=== PATIENT | female | born 1980 | race Caucasian/White ===

== ENCOUNTER 2016-08-01 20:34 | Emergency (ER) | payer OTHER | END 2016-08-01 21:42 | disposition home or self-care (01) | LOC: CED 20:34 → CFTX 20:34 | DX: L02.01 Cutaneous abscess of face (principal); Z88.0 Allergy status to penicillin; Z88.5 Allergy status to narcotic agent; Z91.040 Latex allergy status | CPT/HCPCS: 99282 ==

== ENCOUNTER 2016-09-11 12:58 | Emergency (ER) | payer OTHER ==
[~2016-09-11] VITALS: Ht 162.6 cm; Wt 56.2 kg
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
[2016-09-11 14:36] LABS: BASOPHIL% 0.9 % (0-2.5); HEMATOCRIT 47.6 % (35.0-45.0); LYMPHOCYTE# 1.7 X10e3 (1.0-3.5); MEAN CELL VOLUME 91.4 FL (83-96); MEAN CORPUSCULAR HEMOGLOBIN 30.8 PG (28-34); MEAN CORPUSCULAR HGB CONC 33.7 g/dL (30-36); MEAN PLATELET VOLUME 7.5 FL (6.5-11.5); MONOCYTE# 0.4 X10e3 (0-1.0); MONOCYTE% 7.5 % (3.0-12.0); NEUTROPHIL# 2.7 X10e3 (1.5-7.1); NEUTROPHIL% 55.6 % (40-75); PLATELET COUNT 338 X10e3 (140-420); RED BLOOD COUNT 5.21 X10e (3.90-5.30); RED CELL DISTRIBUTION WIDTH 13.2 % (11.0-15.5); WHITE BLOOD COUNT 4.8 X10e3 (4.0-10.5)
[2016-09-11 14:49] LABS: DIFF IND NO
[2016-09-11 15:00] LABS: ALBUMIN SERUM 4.7 g/dL (3.5-5.0); BILIRUBIN,TOTAL 0.9 mg/dL (0.2-2.0); BUN/CREATININE RATIO 8.75; CALCIUM SERUM 9.7 mg/dL (8.4-10.2); CREATININE SERUM 0.8 mg/dL (0.6-1.4); GLOM FILT RATE Estimated 94.9 mL/min (>60); POTASSIUM 3.1 mmol/L (3.5-5.1); PROTEIN TOTAL SERUM 8.1 g/dL (6.0-8.3)
[2016-09-11 15:55] LABS: URINE SOURCE CLEAN CATCH
[2016-09-11 16:03] LABS: URINE APPEARANCE CLOUDY; URINE BLOOD 1+ (NEG); URINE COLOR DK YELLOW; URINE GLUCOSE NEG (NEG); URINE KETONE NEG (NEG); URINE LEUKOCYTE ESTERASE 1+ (NEG); URINE NITRATE POS (NEG); URINE PH 5.5 (5-8); URINE PROTEIN TRACE (NEG); URINE SPECIFIC GRAVITY 1.025 (1.003-1.035)
[2016-09-11 16:06] LABS: CULTURE INDICATED? YES; URINE BACTERIA AUWI 4+ (NEGATIVE); URINE SQUAMOUS EPITHELIAL CELL MOD /[HPF]; UWBCS1 AUWI 25-50 (0-5)
[2016-09-11 16:08] LABS: URINE BILIRUBIN NEG (NEG)
[2016-09-11 16:20] LABS: AMPHETAMINE POS (NEG); BARBITURATES NEG (NEG); BENZODIAZEPINES NEG (NEG); COCAINE NEG (NEG); MARIJUANA NEG (NEG); OPIATES POS (NEG); TRICYCLIC ANTIDEPRESSANTS NEG (NEG); U METHADONE NEG (NEG)
== END 2016-09-11 16:36 | disposition home or self-care (01) ==
LOC: CED 12:58 → CFTX 14:25 → CED 16:36
PROVIDERS: Emergency Medicine
DX: N39.0 Urinary tract infection, site not specified (principal); E87.6 Hypokalemia; F43.10 Post-traumatic stress disorder, unspecified; F31.9 Bipolar disorder, unspecified; Z88.0 Allergy status to penicillin; Z88.5 Allergy status to narcotic agent; Z91.040 Latex allergy status
CPT/HCPCS: 73630; 80053; 80307; 81003; 84703; 85025; 87086; 87088; 87186; 96361; 96374; 96375; 99284; J0696; J1885; J2405

== ENCOUNTER 2016-09-27 04:08 | Emergency (ER) | payer OTHER ==
--- NOTE | ~2016-09-27 | CT71 ---
[facility] A Service of [facility] RADIOLOGY TEXT RESULTS PATIENT: ELYSIA HERNANDEZ LOCATION: [facility] : 80 UNIT #: [id number] AGE: [address]: Nuno Anderson DO SEX: F ORDER DR: [id number] [facility] [address] [place], [place] [address] [id number] E MR#: [id number] Acc #: [id number] NAME: ELYSIA HERNANDEZ : 1980 SEX: F STUDY DATE/TIME: 09/27/2016 10:08 UNIT: [facility] ROOM: STUDY DESCRIPTION: CT Head Wo Contrast Attending Physician: Nuno Anderson D.O. Ordering Physician: Nuno Anderson D.O. Primary Care Physician: Primary Care Physician No MEDICAL IMAGING REPORT This report is preliminary unless electronic signature is present EXAM CT scan of the head without contrast HISTORY Confusion for one day. Hallucinations. COMPARISON None TECHNIQUE This CT exam was performed with one or more of the following radiation dose reduction techniques: automatic exposure control, adjustment of mA and/or kV according to patient size, and iterative reconstruction. FINDINGS Axial noncontrast images were obtained from the skull base to the vertex. Ventricular size and configuration are normal. There is no evidence of acute infarct or hemorrhage. There are no extra-axial fluid collections. No mass lesion or mass effect is seen. There are no skull fractures. IMPRESSION Normal noncontrast head CT. Dictated by... Ronnie Casper M.D. THIS IS AN ELECTRONICALLY VERIFIED REPORT Ronnie Casper M.D. at 09/27/2016 2:52 PM ROMÁN/jesusita TD: 09/27/2016 14:03 JOB #: [id number] [facility] A Service [facility] RADIOLOGY TEXT RESULTS PATIENT: ELYSIA HERNANDEZ LOCATION: [facility] : 80 UNIT #: [id number] AGE: [address]: Nuno Anderson DO SEX: F ORDER DR: MEDICAL IMAGING REPORT Page 1 of 1 COPY
--- NOTE | ~2016-09-27 | CT4 ---
[facility] A Service of [facility] RADIOLOGY TEXT RESULTS PATIENT: ELYSIA HERNANDEZ LOCATION: [facility] : 80 UNIT #: [id number] AGE: [address]: Nuno Anderson DO SEX: F ORDER DR: [id number] [facility] [address] [place], [place] [address] [id number] E MR#: [id number] Acc #: [id number] NAME: ELYSIA HERNANDEZ : 1980 SEX: F STUDY DATE/TIME: 09/27/2016 6:56 UNIT: [facility] ROOM: STUDY DESCRIPTION: CT Abd and Pelv Wo Cont Attending Physician: Nuno Anderson D.O. Ordering Physician: Kevon Antunez M.D. Primary Care Physician: Primary Care Physician No MEDICAL IMAGING REPORT This report is preliminary unless electronic signature is present EXAM CT abdomen and pelvis without contrast HISTORY Left-sided abdominal pain extending from front to back, nausea x2 weeks. FINDINGS Axial images performed through the abdomen and pelvis without contrast. Multiplanar reconstructions. This CT examination was performed with one or more of the following radiation dose reduction techniques: automatic exposure control, adjustment of mA and/or kV according to patient size, and iterative reconstruction. ABDOMEN: Lung bases unremarkable. The liver, spleen, gallbladder appear normal. The pancreas and adrenal glands unremarkable. Punctate calcifications seen in the left kidney which may represent developing renal stones. There are several small nonobstructing right renal stones. Moderate amount of colonic stool may imply constipation. No focal inflammatory change. The appendix is normal. PELVIS: IUD within the uterine cavity. The adnexa unremarkable. The bladder appears normal. Osseous structures and extraabdominal soft tissues appear normal. IMPRESSION 1. No definite acute intraabdominal or intrapelvic pathology. 2. Two small nonobstructing right renal stones and several punctate calcifications left kidney. This appears most prominent in the region of the renal pyramids and may represent a manifestation of medullary sponge kidney. 3. Moderate amount of colonic stool which may suggest constipation. Appendix normal. [facility] A Service of [facility] RADIOLOGY TEXT RESULTS PATIENT: ELYSIA HERNANDEZ LOCATION: [facility] : 80 UNIT #: [id number] AGE: [address]: Nuno Anderson DO SEX: F ORDER DR: Dictated by... Karly Hassan M.D. THIS IS AN ELECTRONICALLY VERIFIED REPORT Karly Hassan M.D. at 09/27/2016 5:08 PM SOCORRO/yanira TD: 09/27/2016 12:25 JOB #: [id number] MEDICAL IMAGING REPORT Page 1 of 1 COPY
[2016-09-27 05:21] LABS: BASOPHIL% 0.5 % (0-2.5); DIFF IND NO; EOSINOPHIL% 0.5 % (0.0-7.0); HEMATOCRIT 45.5 % (35.0-45.0); HEMOGLOBIN 15.9 gm/dL (12.0-16.0); LYMPHOCYTE# 2.8 X10e3 (1.0-3.5); LYMPHOCYTE% 32.1 % (17.0-45.0); MEAN CELL VOLUME 89.4 FL (83-96); MEAN CORPUSCULAR HEMOGLOBIN 31.2 PG (28-34); MEAN CORPUSCULAR HGB CONC 34.9 g/dL (30-36); MEAN PLATELET VOLUME 7.2 FL (6.5-11.5); MONOCYTE# 0.6 X10e3 (0-1.0); MONOCYTE% 6.6 % (3.0-12.0); NEUTROPHIL# 5.3 X10e3 (1.5-7.1); NEUTROPHIL% 60.3 % (40-75); PLATELET COUNT 356 X10e3 (140-420); RED BLOOD COUNT 5.08 X10e (3.90-5.30); RED CELL DISTRIBUTION WIDTH 12.8 % (11.0-15.5); WHITE BLOOD COUNT 8.7 X10e3 (4.0-10.5)
[2016-09-27 06:01] LABS: URINE SOURCE CLEAN CATCH
[2016-09-27 06:03] LABS: ALBUMIN SERUM 4.6 g/dL (3.5-5.0); BILIRUBIN, DIRECT 0.2 mg/dL (0.0-0.2); BILIRUBIN,INDIRECT 0.5 mg/dL (0.0-0.9); BILIRUBIN,TOTAL 0.7 mg/dL (0.2-2.0); BUN/CREATININE RATIO 8.88; CALCIUM SERUM 9.3 mg/dL (8.4-10.2); CREATININE SERUM 0.9 mg/dL (0.6-1.4); GLOM FILT RATE Estimated 82.3 mL/min (>60); POTASSIUM 3.4 mmol/L (3.5-5.1); PROTEIN TOTAL SERUM 7.7 g/dL (6.0-8.3)
[2016-09-27 06:06] LABS: URINE APPEARANCE CLEAR; URINE BILIRUBIN NEG (NEG); URINE BLOOD NEG (NEG); URINE COLOR YELLOW; URINE GLUCOSE NEG (NEG); URINE KETONE NEG (NEG); URINE LEUKOCYTE ESTERASE TRACE (NEG); URINE NITRATE NEG (NEG); URINE PROTEIN NEG (NEG); URINE SPECIFIC GRAVITY 1.016 (1.003-1.035)
[2016-09-27 06:07] LABS: CULTURE INDICATED? YES; URBCS1 AUWI 0-2 /[HPF] (0-2); URINE BACTERIA AUWI 1+ (NEGATIVE); URINE SQUAMOUS EPITHELIAL CELL MOD /[HPF]
[2016-09-27 07:13] LABS: AMPHETAMINE POS (NEG); BARBITURATES NEG (NEG); BENZODIAZEPINES NEG (NEG); COCAINE NEG (NEG); MARIJUANA NEG (NEG); OPIATES POS (NEG); TRICYCLIC ANTIDEPRESSANTS NEG (NEG); U METHADONE NEG (NEG)
[2016-09-28 23:42] LABS: CHLAMYDIA TRACH Not Detected (Not Detected); N GONOR Not Detected (Not Detected)
== END 2016-09-27 11:44 | disposition home or self-care (01) ==
LOC: CED 04:08
PROVIDERS: Emergency Medicine
DX: N39.0 Urinary tract infection, site not specified (principal); F15.10 Other stimulant abuse, uncomplicated; G40.909 Epilepsy, unspecified, not intractable, without status epilepticus; F90.9 Attention-deficit hyperactivity disorder, unspecified type; Z87.442 Personal history of urinary calculi
CPT/HCPCS: 70450; 74176; 80048; 80076; 80307; 81003; 83605; 83690; 84703; 85025; 87040; 87086; 87491; 87591; 87808; 87905; 99284; J2405

== ENCOUNTER 2016-09-27 17:51 | Emergency (ER) | payer OTHER ==
[2016-09-27 18:42] LABS: URINE SOURCE CLEAN CATCH
[2016-09-27 18:52] LABS: URINE APPEARANCE CLEAR; URINE BILIRUBIN NEG (NEG); URINE BLOOD NEG (NEG); URINE COLOR YELLOW; URINE GLUCOSE NEG (NEG); URINE KETONE NEG (NEG); URINE LEUKOCYTE ESTERASE 1+ (NEG); URINE NITRATE NEG (NEG); URINE PH 7.5 (5-8); URINE PROTEIN NEG (NEG); URINE SPECIFIC GRAVITY 1.014 (1.003-1.035)
[2016-09-27 18:56] LABS: URBCS1 AUWI 0-2 /[HPF] (0-2); URINE BACTERIA AUWI NEG (NEGATIVE); URINE SQUAMOUS EPITHELIAL CELL NONE SEEN /[HPF]
[2016-09-27 18:58] LABS: CULTURE INDICATED? NO
[2016-09-29 18:11] LABS: CHLAMYDIA TRACH Not Detected (Not Detected); N GONOR Not Detected (Not Detected)
== END 2016-09-27 20:44 | disposition home or self-care (01) ==
LOC: CED 17:51 → CFTX 17:51 → CED 19:15
PROVIDERS: Nurse Practitioner
DX: N89.8 Other specified noninflammatory disorders of vagina (principal); F31.9 Bipolar disorder, unspecified; F15.10 Other stimulant abuse, uncomplicated; Z88.0 Allergy status to penicillin; Z88.5 Allergy status to narcotic agent; Z91.040 Latex allergy status
CPT/HCPCS: 81003; 84703; 87491; 87591; 99284; J2405

== ENCOUNTER 2016-10-11 14:13 | Emergency (ER) | payer OTHER ==
[~2016-10-11] VITALS: Ht 162.6 cm; Wt 56.2 kg
[2016-10-11 15:48] LABS: URINE SOURCE CLEAN CATCH
[2016-10-11 15:55] LABS: BASOPHIL% 0.6 % (0-2.5); EOSINOPHIL# 0.1 X10e3 (0-0.7); EOSINOPHIL% 1.9 % (0.0-7.0); HEMATOCRIT 41.5 % (35.0-45.0); HEMOGLOBIN 14.3 gm/dL (12.0-16.0); LYMPHOCYTE% 45.8 % (17.0-45.0); MEAN CELL VOLUME 89.4 FL (83-96); MEAN CORPUSCULAR HEMOGLOBIN 30.7 PG (28-34); MEAN CORPUSCULAR HGB CONC 34.4 g/dL (30-36); MEAN PLATELET VOLUME 7.4 FL (6.5-11.5); MONOCYTE# 0.5 X10e3 (0-1.0); MONOCYTE% 7.4 % (3.0-12.0); NEUTROPHIL# 2.9 X10e3 (1.5-7.1); NEUTROPHIL% 44.3 % (40-75); PLATELET COUNT 272 X10e3 (140-420); RED BLOOD COUNT 4.65 X10e (3.90-5.30); RED CELL DISTRIBUTION WIDTH 12.9 % (11.0-15.5); WHITE BLOOD COUNT 6.4 X10e3 (4.0-10.5)
[2016-10-11 15:59] LABS: URINE APPEARANCE CLEAR; URINE BILIRUBIN NEG (NEG); URINE BLOOD NEG (NEG); URINE COLOR YELLOW; URINE GLUCOSE NEG (NEG); URINE KETONE NEG (NEG); URINE LEUKOCYTE ESTERASE NEG (NEG); URINE NITRATE NEG (NEG); URINE PROTEIN NEG (NEG); URINE SPECIFIC GRAVITY 1.023 (1.003-1.035)
[2016-10-11 16:15] LABS: DIFF IND NO
[2016-10-11 16:18] LABS: ALBUMIN SERUM 4.5 g/dL (3.5-5.0); BILIRUBIN, DIRECT 0.2 mg/dL (0.0-0.2); BILIRUBIN,INDIRECT 0.5 mg/dL (0.0-0.9); BILIRUBIN,TOTAL 0.7 mg/dL (0.2-2.0); BUN/CREATININE RATIO 8.75; CALCIUM SERUM 9.4 mg/dL (8.4-10.2); CREATININE SERUM 0.8 mg/dL (0.6-1.4); GLOM FILT RATE Estimated 94.9 mL/min (>60); POTASSIUM 3.3 mmol/L (3.5-5.1); PROTEIN TOTAL SERUM 7.5 g/dL (6.0-8.3)
[2016-10-11 16:28] LABS: CULTURE INDICATED? NO
[2016-10-11 18:51] LABS: AMPHETAMINE POS (NEG); BARBITURATES NEG (NEG); BENZODIAZEPINES NEG (NEG); COCAINE POS (NEG); MARIJUANA NEG (NEG); OPIATES POS (NEG); TRICYCLIC ANTIDEPRESSANTS NEG (NEG); U METHADONE NEG (NEG)
== END 2016-10-11 19:24 | disposition home or self-care (01) ==
LOC: CED 14:13
PROVIDERS: Emergency Medicine
DX: F22 Delusional disorders (principal); R56.9 Unspecified convulsions; Z88.0 Allergy status to penicillin; Z88.1 Allergy status to other antibiotic agents; Z88.5 Allergy status to narcotic agent
CPT/HCPCS: 36415; 80048; 80076; 80307; 81003; 83690; 84703; 85025; 99284

== ENCOUNTER 2016-10-12 00:11 | Emergency (ER) | payer OTHER | END 2016-10-12 05:04 | disposition home or self-care (01) | LOC: CED 00:11 | DX: L29.9 Pruritus, unspecified (principal); J02.9 Acute pharyngitis, unspecified; F31.9 Bipolar disorder, unspecified; F43.10 Post-traumatic stress disorder, unspecified; Z88.0 Allergy status to penicillin; Z91.040 Latex allergy status | CPT/HCPCS: 87651; 96372; 99283; J1885 ==

== ENCOUNTER 2016-11-10 03:00 | Emergency (ER) | payer OTHER ==
[~2016-11-10] VITALS: Ht 165.1 cm; Wt 61.2 kg
[2016-11-10 06:08] LABS: AMPHETAMINE POS (NEG); BARBITURATES NEG (NEG); BENZODIAZEPINES NEG (NEG); COCAINE POS (NEG); MARIJUANA NEG (NEG); OPIATES POS (NEG); TRICYCLIC ANTIDEPRESSANTS NEG (NEG); U METHADONE NEG (NEG)
== END 2016-11-10 09:07 ==
LOC: CED 03:00
PROVIDERS: Emergency Medicine
DX: F11.20 Opioid dependence, uncomplicated (principal); F31.9 Bipolar disorder, unspecified; Z88.0 Allergy status to penicillin; Z88.5 Allergy status to narcotic agent; Z91.040 Latex allergy status
CPT/HCPCS: 80307; 99285

== ENCOUNTER 2016-11-10 06:00 | Inpatient (IN) | payer OTHER ==
[~2016-11-10] VITALS: Ht 162.6 cm; Wt 54.4 kg
--- NOTE | ~2016-11-10 | CO ---
Unit #: [id number] #: [id number] Patient: ELYSIA HERNANDEZ [id number] [place] [address] [id number] I MR#: [id number] NAME: ELYSIA HERNANDEZ ROOM: [facility] Age: 36 Sex: F Admission Date: 11/10/2016 : 1980 Attending Physician: Davon Edwards M.D. Primary Care Physician: Generic Doctor Not In System Consultation Date: 11/11/2016 CONSULTATION REPORT SUBJECTIVE Elysia is a 36-year-old who had an abnormal urinalysis on admission. She has had no complaints of urgency, frequency, or dysuria. There have been no recorded increased temperatures. OBJECTIVE GENERAL: Alert, well nourished, in no apparent distress. VITAL SIGNS: Blood pressure 120/70, heart rate 80, respirations 16, temperature 98.6. ABDOMEN: Soft, nontender. BACK: Negative CVA tenderness. DIAGNOSTIC STUDIES LABORATORY RESULTS: Admission urinalysis 2+ bacteria. ASSESSMENT Urinary tract infection. PLAN Bactrim DS one p.o. b.i.d. x3 days. Dictated by... Michelle Coley P.A.-C. for Bertin Saldana/jeny TD: 11/12/2016 17:19 JOB #: [id number] CONSULTATION REPORT Page 1 of 1 X Michelle Coley CONSULTATION REPORT
--- NOTE | ~2016-11-10 | PN ---
Unit #: [id number] #: [id number] Patient: ELYSIA HERNANDEZ [id number] [facility] [address] [place] [address] [id number] I MR#: [id number] NAME: ELYSIA HERNANDEZ ROOM: [facility] Age: 36 Sex: F Admission Date: 11/10/2016 : 1980 Attending Physician: Davon Edwards M.D. Admitting Physician: Davon Edwards M.D. Primary Care Physician: Generic Doctor Not In System [facility] PROGRESS NOTES DATE OF SERVICE 11/11/2016 DISCUSSION Ms. Hernandez is a 36-year-old white female with substance abuse and mood disorder who was seen today. Chart was reviewed and case was discussed with staff. She has been anxious, withdrawn, in acute distress and discomfort as she went through detox and has been exhibiting and reporting persistent depressive symptom, but she has been taking the medications and tolerating them fairly well with no reported side effects. MENTAL STATUS EXAMINATION Young white female who is casually dressed with fair personal hygiene, appears to be in no acute distress or discomfort. She was awake and alert on interaction with intact orientation. Her mood is anxious and depressed with congruent affect. She reports having suicidal ideation but denies homicidal ideation. Her insight and judgment remain slightly impaired. TREATMENT PLAN 1. We will continue her on her current medications and detox protocol. We will monitor her response to the medications and make further adjustments as needed. 2. We will continue to follow up. Dictated by... Davon Edwards M.D. IAA/giorgiog TD: 11/11/2016 11:03 JOB #: [id number] Unit #: [id number] #: [id number] Patient: ELYSIA HERNANDEZ PROGRESS NOTES Page 1 of 1 X Davon Edwards MD PROGRESS NOTE
--- NOTE | ~2016-11-10 | CO ---
Unit #: [id number] #: [id number] Patient: ELYSIA HERNANDEZ [id number] [place] [address] [id number] I MR#: [id number] NAME: ELYSIA HERNANDEZ ROOM: [facility] Age: 36 Sex: F Admission Date: 11/10/2016 : 1980 Attending Physician: Davon Edwards M.D. Primary Care Physician: Generic Doctor Not In System Consultation Date: 11/10/2016 CONSULTATION REPORT SUBJECTIVE Elysia has a history of seizure disorder. This was addressed under her admission H and P dated 11/10/2016. Please see H and P dated 11/10/2016. Dictated by... Phil QuirozAKarley for Bertin Saldana/jeny TD: 11/10/2016 21:47 JOB #: [id number] CONSULTATION REPORT Page 1 of 1 X Michelle Coley CONSULTATION REPORT
--- NOTE | ~2016-11-10 | PN ---
Unit #: [id number] #: [id number] Patient: ELYSIA HERNANDEZ [id number] [facility] [address] [place] [address] [id number] I MR#: [id number] NAME: ELYSIA HERNANDEZ ROOM: [facility] Age: 36 Sex: F Admission Date: 11/10/2016 : 1980 Attending Physician: Davon Edwards M.D. Admitting Physician: Davon Edwards M.D. Primary Care Physician: Generic Doctor Not In System [facility] PROGRESS NOTES DATE November 12, 2016 DISCUSSION Ms. Hernanedz is a 36-year-old white female, who was seen today and chart was reviewed and the case was discussed with the staff. The patient has remained anxious and seclusive to herself. Meanwhile, she has been cooperative with the treatment recommendations and she has been taking the medications and tolerating them fairly well with no reported side effects. MENTAL STATUS EXAMINATION Young white female, who was casually dressed with fair personal hygiene and appears to be in no acute distress or discomfort. She was awake and alert on interaction with intact orientation. Her mood was anxious and depressed with a congruent affect. She denies any suicidal or homicidal ideations. Her insight and judgment remain slightly impaired. TREATMENT PLAN 1. We will continue her on her current medications and treatment protocol, and will monitor her response to the medications, and make further adjustments as needed. 2. We will continue to followup. Dictated by... Bertin Cooley/dorota TD: 11/14/2016 10:06 JOB #: [id number] Unit #: [id number] #: [id number] Patient: ELYSIA HERNANDEZ PROGRESS NOTES Page 1 of 1 X Davon Edwards MD PROGRESS NOTE
--- NOTE | ~2016-11-10 | HP ---
Unit #: [id number] #: [id number] Patient: ELYSIA HERNANDEZ [id number] [place] [address] [id number] I MR#: [id number] NAME: ELYSIA HERNANDEZ ROOM: 82 Age: 36 Sex: F Admission Date: 11/10/2016 : 1980 Attending Physician: Davon Edwards M.D. Admitting Physician: Davon Edwards M.D. Primary Care Physician: Generic Doctor Not In System HISTORY AND PHYSICAL HISTORY OF PRESENT ILLNESS Elysia is a 36 year old admitted to [facility] because of her polysubstance abuse which includes heroin and methamphetamine. PAST MEDICAL HISTORY 1. Long history of illicit substance abuse to include heroin and methamphetamine. 2. Seizure disorder. 3. History of cervical dysplasia. PAST SURGICAL HISTORY 1. LEEP procedure. 2. Hemorrhoidectomy. 3. Oral. ALLERGIES Penicillin, latex, codeine. SOCIAL HISTORY She denies cigarettes and alcohol. Admits to a history of poly-illicit substance abuse to include heroin and methamphetamine. FAMILY HISTORY Medically noncontributory. REVIEW OF SYSTEMS CONSTITUTIONAL: No fever or chills. HEENT: Denies any sore throat, ear pain or runny nose. CARDIOVASCULAR: Denies chest pain, irregular heart rhythm or palpitations. CHEST: Denies shortness of breath or cough. No hemoptysis. GASTROINTESTINAL: Denies nausea, vomiting, diarrhea or chronic constipation. ENDOCRINE: Denies history of increased thirst or urination. No recent significant weight loss or gain. GENITOURINARY: Denies dysuria, frequency, or hematuria. SKIN: Denies any rashes. HEMATOLOGIC: Denies history of increased bleeding or bruising. MUSCULOSKELETAL: Denies any hot, swollen joints. No generalized muscle pain. NEUROLOGIC: Denies problems with vision or speech. No frequent, severe headaches. No numbness, tingling or weakness in any extremities. Denies loss of bladder or bowel control. Unit #: [id number] #: [id number] Patient: ELYSIA HERNANDEZ CURRENT MEDICATIONS 1. Topamax 25 mg b.i.d. 2. Milk of Magnesia p.r.n. 3. Maalox p.r.n. 4. Tylenol p.r.n. PHYSICAL EXAMINATION GENERAL: Alert, petite, in no apparent distress. VITAL SIGNS: Blood pressure 113/70, heart rate 80, respirations 16, temperature 98.6. WEIGHT: 120. HEIGHT: 5 feet 4 inches. SKIN: Warm and dry without rash or lesion. HEENT: Normocephalic. TMs not viewed. Oral and nasal passages clear. Conjunctivae clear. PERRLA. EOMs intact. NECK: Supple without lymphadenopathy or thyromegaly. HEART: Regular rate and rhythm without murmur. LUNGS: Clear. ABDOMEN: Soft, nontender. : Not done. EXTREMITIES: No evidence of cyanosis, clubbing or edema. Moves all without focal deficit. NEUROLOGICAL: Grossly within normal limits. Cranial Nerves: II: Visual reddy are intact. III, IV AND : Extraocular movements are intact. Pupils are equal, round and reactive to light. V: Facial sensation is grossly normal. VII: Facial movements and expression are normal. VIII: Auditory acuity grossly intact. IX, X: Uvula is midline. Phonation is normal. XI: Patient shrugs shoulders and turns head normally. XII: Tongue protrudes in the midline. Sensory and Motor Function: Sensory and motor sensation is grossly normal. Motor: moves all extremities well. Coordination: Gait is normal. Deep Tendon Reflexes: Intact. IMPRESSION Psychiatric admission. RECOMMENDATIONS PSYCHIATRIC: Per psychiatrist. MEDICAL: See no contraindication to participate in facility's activities. MEDICAL PROGNOSIS Good. MEDICAL CONDITION Stable. Dictated by... Michelle Coley P.A.-C. for Bertin Saldana/leighann TD: 11/10/2016 21:49 JOB #: [id number] Unit #: [id number] #: [id number] Patient: ELYSIA HRENANDEZ HISTORY AND PHYSICAL Page 1 of 1 X Michelle Coley HISTORY AND PHYSICAL
--- NOTE | ~2016-11-10 | A ---
[facility] Nutrition Therapy DATE: 11/11/16 Patient: ELYSIA HERNANDEZ Physician: AFAIRF Address: [address] [place] [address] Room/Bed: [address], Zip: [place] [address] Admit Date: 11/10/16 Date of : [birth year] Height: 5 4 Weight: 119 54.26255 NUTRITIONAL ASSESSMENT: REASON: PT SEEN FOR 1PT NUTRITION RISK SCORE FOR WEIGHT LOSS. ADMITTED FOR DRUG OD PMH: ADD, BIPOLAR, SZ Anthropometrics: PT IS 36 YO FEMALE. HT 5'4", WT 120LBS, BMI 20. IBW 120, 100%IBW Labs: K: 3.3L, BUN: 7L, AST: 48H, ALT: 58H Meds: TOPAMAX, NACL Assessment:PT WAS ADMITTED AFTER DRUG OD IN WHICH SHE USED HEROINE ACCIDENTALLY, THINKING IT WAS METH. THIS CAUSED THE OD. IS NON COMPLIANT ON MEDS. PT ABUSES POLYSUBSTANCES: ALCOHOL, CRACK, LSD, HEROINE, METH, SPICE. PT IS ON NO DAIRY DIET. PT REPORTS 12-15LBS WT LOSS X 4 MONTHS. PT REPORTS THAT HER PO INTAKE IS DECENT, BUT THAT SHE IS A "GOOD EATER". PT STATED SHE DOES NOT LIKE TO EAT IN FRONT OF PEOPLE THOUGH. PT AGREED TO TRY ENSURE. Dx: UNINTENTIONAL WEIGHT LOSS R/T CURRENT CONDITION AEB PT REPORT OF 12-15LB WT LOSS X 4 MONTHS Intervention: NO DAIRY DIET, SUPP, PSYCH, MEDS PER MD Monitoring, Evaluation and Goals: 1. PREVENT FURTHER WEIGHT LOSS 2. ADEQUATE PO INTAKE >50% OF MEALS MONITOR: WEIGHT, PO/FLUID INTAKE Recommendations: 1. RD WILL ORDER ENSURE CLEAR ONCE PER DAY DUE TO DAIRY INTOLERANCE 2. ENCOURAGE ADEQUATE PO INTAKE OF MEALS RD WILL FOLLOW UP PER PROTOCOL AND PRN. PT HAS MILD NUTRITION RISK. Respectfully, EILEEN PETERSON RD, LD Food and Nutritional Services [facility] Nutrition Therapy DATE: 11/11/16 Patient: ELYSIA HERNANDEZ Physician: ZENAIDAF Address: [address] [place] [address] Room/Bed: [address], Zip: [place] [address] Admit Date: 11/10/16 Date of : [birth year] Height: 5 4 Weight: [phone] [facility] cc: client file
--- NOTE | ~2016-11-10 | PA ---
Unit #: [id number] #: [id number] Patient: ELYSIA HERNANDEZ [id number] [facility] [address] [place] [address] [id number] MR#: [id number] NAME: ELYSIA HERNANDEZ ROOM: P182 Age: 36 Sex: F Admission Date: 11/10/2016 : 1980 Date of Assessment: 11/10/2016 Attending Physician: Davon Edwards M.D. Admitting Physician: Davon Edwards M.D. Primary Care Physician: Generic Doctor Not In System PSYCHIATRIC ASSESSMENT DATE OF SERVICE 11/10/2016 IDENTIFYING DATA Ms. Lara is a 36-year-old white female, who is a resident of [place], [place], and was transferred to from [facility]. CHIEF COMPLAINT "I overdosed on an unknown amount of heroin." HISTORY OF PRESENT ILLNESS Ms. Lara is a 36-year-old white female with a history of substance abuse and mood disorder, who was brought to the hospital emergency room after she apparently overdosed on an unknown amount of heroin and was brought to the emergency room and was given Narcan and she reports that she has been using heroin thinking it was meth and reports that she has ADD and is bipolar, but has not been on any medication since 06/2016 and reports she wants to get back on her medication and wants to get clean and get her life back together and get to her work situation and get her children back and that she needs to get back on her medication. She does report increasing depression, anxiety, irritability, feelings of hopelessness and helplessness, and suicidal ideations. The ER doctor reported that the patient presented reporting using meth regularly, but unknowingly used heroin and ended up overdosing and requested detox as she was given Narcan 2 mg before being brought to the hospital emergency room where she was seen to have a COWS of 14 indicating significant withdrawal symptoms, and as such, recommendation for an inpatient level of care for safety and stabilization was made. The patient was stepped up to the inpatient unit. SUBSTANCE ABUSE HISTORY The patient reports a history of alcohol, cannabis, cocaine, acid, opioids, methamphetamine and spice abuse, and currently methamphetamine has been her drug of choice. PAST PSYCHIATRIC HISTORY The patient has had a history of multiple inpatient psychiatric and chemical dependency treatments as she has been hospitalized at [facility] and to a facility in [place], [place], at [facility], and methadone clinic and Suboxone clinic, and currently is not active in any treatment program, is not seeing a psychiatrist, and is not taking any psychotropic medications. Unit #: [id number] #: [id number] Patient: ELYSIA HERNANDEZ PAST MEDICAL HISTORY Carpal tunnel syndrome. ALLERGIES Penicillin, codeine, latex, , piperacillin. PERSONAL AND SOCIAL HISTORY A 36-year-old white female, who reports that she is and lives alone and has poor social support system. MENTAL STATUS EXAMINATION Young white female, who was casually dressed with a fair personal hygiene and appears to be in no acute distress or discomfort. She was awake and alert on interaction with intact orientation to time, place, and person. Her mood was anxious and depressed with a congruent affect. Her speech is slow and restricted in content. She reports having suicidal ideation, but denies any homicidal ideations, and also denies any auditory or visual hallucinations. Her insight and judgment remain significantly impaired. DIAGNOSTIC IMPRESSION Psychiatric: Bipolar disorder, most recent episode depressed, recurrent, moderate, without psychotic features. Opioid dependence, moderate and acute withdrawals. Methamphetamine dependence, moderate. Medical: Carpal tunnel syndrome. Stressors: Moderate psychosocial stressors. TREATMENT PLAN 1. The patient has presented with a history of mood disorder and substance abuse and has been decompensating and will need inpatient hospitalization for detoxification, safety, and stabilization. We will start her back on her home medications. We will adjust the medications and monitor response. 2. Supportive therapy was provided to the patient. 3. Safe, structured, and nourishing environment will be provided. ESTIMATED LENGTH OF STAY 5 to 7 days. ABILITY TO HELP SELF Limited. WILLINGNESS TO HELP SELF The patient appears to be willing to help self. STRENGTHS 1. Communicative. 2. Cooperative. PROBLEMS 1. Chronic dysphoric symptoms. 2. Chronic chemical dependency. 3. Poor social support system. DISCHARGE CRITERIA This will be contingent upon the patient's ability to go through detox without having any significant withdrawal symptoms and her ability to stay Unit #: [id number] #: [id number] Patient: ELYSIA HERNANDEZ safe to herself, particularly after discharge from the program. Dictated by... Bertin Cooley/jeny TD: 11/12/2016 00:34 JOB #: [id number] PSYCHIATRIC ASSESSMENT Page 1 of 1 X Davon Edwards MD PSYCHIATRIC ASSESSMENT
--- NOTE | ~2016-11-10 | CO ---
Unit #: [id number] #: [id number] Patient: ELYSIA HERNANDEZ [id number] [place] [address] [id number] I MR#: [id number] NAME: ELYSIA HERNANDEZ ROOM: [facility] Age: 36 Sex: F Admission Date: 11/10/2016 : 1980 Attending Physician: Davon Edwards M.D. Primary Care Physician: Generic Doctor Not In System Consultation Date: 11/12/2016 CONSULTATION REPORT HISTORY OF PRESENT ILLNESS Elysia reports a history of esophageal stenosis and for the past 2 days, she reports that she has been unable to swallow any food or fluids. She is gagging and spitting, does not have any nausea at all. She has a history of this in the past several years ago when she was , she had excessive spitting. She also has a history of acid reflux and reports that she is currently having pain from the reflux and believes this could be causing part of her problem. She is unable to swallow her omeprazole. She also was recently diagnosed with UTI and was started on Bactrim, however, she is unable to take this either. She has no other complaints. Her LMP was 3 months ago. She did have a negative urine hCG on this admission. No other complaints. PHYSICAL EXAMINATION CARDIAC: Regular rate and rhythm. No murmurs, gallops, or rubs. RESPIRATORY: Clear to auscultation bilaterally. ABDOMEN: Bowel sounds positive in all quadrants. No abdominal tenderness to palpation. No CVA tenderness or flank pain. Did observe excessive salivation and spitting during the exam. ASSESSMENT AND PLAN Gastroesophageal reflux disease with hyperptyalism. We will begin Bicitra one time. The patient is unable to tolerate this and continues to be unable to take in any food or fluid. She will need to be transferred to the ER for IV management. Dictated by... Briseida Mcclain/jeny TD: 11/13/2016 03:19 JOB #: [id number] Unit #: [id number] #: [id number] Patient: ELYSIA HERNANDEZ CONSULTATION REPORT Page 1 of 1 X DYLON MATSON APRN CONSULTATION REPORT
[2016-11-11 09:47] LABS: URINE APPEARANCE TURBID; URINE BILIRUBIN NEG (NEG); URINE BLOOD 1+ (NEG); URINE COLOR DK YELLOW; URINE GLUCOSE NEG (NEG); URINE KETONE TRACE (NEG); URINE LEUKOCYTE ESTERASE TRACE (NEG); URINE NITRATE NEG (NEG); URINE PROTEIN TRACE (NEG); URINE SPECIFIC GRAVITY 1.031 (1.003-1.035)
[2016-11-11 09:50] LABS: URINE BACTERIA AUWI 2+ (NEGATIVE); URINE SQUAMOUS EPITHELIAL CELL MANY /[HPF]
[2016-11-11 10:09] LABS: URINE AMORPHOUS SEDIMENT AMORP URATES; URINE CRYSTALS CALCIUM OXALATE /[HPF]; URINE YEAST PRESENT
[2016-11-11 10:52] LABS: AMPHETAMINE POS (NEG); BARBITURATES NEG (NEG); BENZODIAZEPINES NEG (NEG); COCAINE POS (NEG); MARIJUANA NEG (NEG); OPIATES POS (NEG); TRICYCLIC ANTIDEPRESSANTS NEG (NEG); U METHADONE NEG (NEG)
[2016-11-12 13:16] LABS: BASOPHIL% 0.5 % (0-2.5); EOSINOPHIL# 0.1 X10e3 (0-0.7); EOSINOPHIL% 0.5 % (0.0-7.0); HEMATOCRIT 41.4 % (35.0-45.0); HEMOGLOBIN 14.1 gm/dL (12.0-16.0); LYMPHOCYTE# 1.5 X10e3 (1.0-3.5); LYMPHOCYTE% 15.9 % (17.0-45.0); MEAN CELL VOLUME 89.2 FL (83-96); MEAN CORPUSCULAR HEMOGLOBIN 30.5 PG (28-34); MEAN CORPUSCULAR HGB CONC 34.2 g/dL (30-36); MEAN PLATELET VOLUME 8.3 FL (6.5-11.5); MONOCYTE# 0.2 X10e3 (0-1.0); MONOCYTE% 2.2 % (3.0-12.0); NEUTROPHIL# 7.7 X10e3 (1.5-7.1); NEUTROPHIL% 80.9 % (40-75); PLATELET COUNT 300 X10e3 (140-420); RED BLOOD COUNT 4.64 X10e (3.90-5.30); RED CELL DISTRIBUTION WIDTH 13.3 % (11.0-15.5); WHITE BLOOD COUNT 9.5 X10e3 (4.0-10.5)
[2016-11-12 13:29] LABS: ALBUMIN SERUM 3.7 g/dL (3.5-5.0); BILIRUBIN,TOTAL 0.6 mg/dL (0.2-2.0); CALCIUM SERUM 9.3 mg/dL (8.4-10.2); CREATININE SERUM 0.7 mg/dL (0.6-1.4); GLOM FILT RATE Estimated 111.5 mL/min (>60); PROTEIN TOTAL SERUM 6.3 g/dL (6.0-8.3)
[2016-11-12 13:55] LABS: DIFF IND NO
[2016-11-12] MEDS ORDERED: TOPIRAMATE25 MG PO (23:04)
[2016-11-12] MEDS ORDERED: CLARITIN10 M2 PO (23:04)
[2016-11-12] MEDS ORDERED: ACID REDUCER20 MG PO (23:05)
[2016-11-12] MEDS ORDERED: PANTOPRAZOLE SO40 MG PO (23:05)
[2016-11-12] MEDS ORDERED: CATAPRES0.1 MG PO (23:06)
[2016-11-12] MEDS ORDERED: BACTRIM 400-801 EACH (23:07)
[2016-11-12] MEDS ORDERED: MAALOX SUSPENS355 ML PO (23:09)
[2016-11-12] MEDS ORDERED: TYL325 PO (23:09)
[2016-11-12] MEDS ORDERED: HYDROXYZINE HCL50 MG PO (23:10)
[2016-11-12] MEDS ORDERED: MILK OF MAGNESIA PO (23:10)
[2016-11-12] MEDS ORDERED: PHENERGAN25 MG/1 M1 (23:11)
[2016-11-12] MEDS ORDERED: MOTRIN600 MG PO (23:12)
[2016-11-12] MEDS ORDERED: ONDANSETRON ODT4 MG PO (23:13)
[2016-11-12] MEDS ORDERED: PHENERGAN25 M1 PO (23:14)
== END 2016-11-13 00:30 | DRG 885 ==
LOC: P1E 09:47
PROVIDERS: Psychiatry & Neurology Psychiatry
PROC: HZ2ZZZZ Detoxification Services for Substance Abuse Treatment (ICD-10-PCS; principal; 2016-11-10)
DX: F31.32 Bipolar disorder, current episode depressed, moderate (principal); F15.20 Other stimulant dependence, uncomplicated; R45.851 Suicidal ideations; F11.23 Opioid dependence with withdrawal; N39.0 Urinary tract infection, site not specified; G56.00 Carpal tunnel syndrome, unspecified upper limb; Z88.0 Allergy status to penicillin; Z88.5 Allergy status to narcotic agent; Z91.040 Latex allergy status; G40.909 Epilepsy, unspecified, not intractable, without status epilepticus; K21.9 Gastro-esophageal reflux disease without esophagitis
CPT/HCPCS: 80053; 80307; 81003; 84703; 85025; 99285; J2550

== ENCOUNTER 2016-11-12 19:54 | Inpatient (IN) | payer OTHER ==
[~2016-11-12] VITALS: Ht 162.6 cm; Wt 54.4 kg
--- NOTE | ~2016-11-12 | DS ---
Unit #: [id number] #: [id number] Patient: ELYSIA HERNANDEZ [id number] [address] [place], [place] [address] [id number] I MR#: [id number] NAME: ELYSIA HERNANDEZ ROOM: 241 Age: 36 Sex: F Admission Date: 11/12/2016 : 1980 Discharge Date: 11/15/2016 Attending Physician: Margarito Mccoy M.D. Primary Care Physician: Aleksey Rodriguez M.D. DISCHARGE SUMMARY DISCHARGE DIAGNOSES 1. Esophageal obstruction secondary to food bolus. 2. Bipolar disorder. 3. History of illicit substance abuse. 4. Past history of seizure disorder. HOSPITAL COURSE The patient is a 36-year-old woman who was transferred from [facility] with intractable nausea and vomiting. She underwent a flexible esophagoscopy that demonstrated a food bolus in the distal esophagus. However, it was only possible to remove part of the food bolus. Surgery was consulted to attempt removal of the rest of the food bolus under general anesthesia. The patient was taken for esophagogastroduodenoscopy, and it was noted that the patient had passed the food bolus on her own and there was no further obstruction. The patient is able to tolerate food. There is no further nausea and vomiting. The patient is comfortable, and she will be discharged home today with an outpatient followup with [facility]. DISCHARGE MEDICATIONS 1. Maalox suspension 30 mL p.o. q.6 p.r.n. 2. Topamax 25 mg p.o. b.i.d. 3. Claritin 10 mg p.o. daily. 4. Phenergan 25 mg p.o. twice daily as needed for nausea. 5. Hydroxyzine 50 mg p.o. q.6 p.r.n. 6. Pepcid 20 mg p.o. twice daily. 7. Potassium chloride 20 mEq p.o. once daily for 5 days. DISCHARGE INSTRUCTIONS 1. Follow up with primary care physician. 2. Follow up with outpatient [facility]. Dictated by... Bertin Light/harper TD: 11/17/2016 07:29 JOB #: [id number] Unit #: [id number] #: [id number] Patient: ELYSIA HERNANDEZ DISCHARGE SUMMARY Page 1 of 1 X X DISCHARGE SUMMARY
--- NOTE | ~2016-11-12 | OR ---
Unit #: [id number] #: [id number] Patient: ELYSIA HERNANDEZ [id number] [address] [place], [place] [address] [id number] I MR#: [id number] NAME: ELYSIA HERNANDEZ ROOM: [facility] Date of Procedure: 11/15/2016 Admission Date: 11/12/2016 Surgeon: Dez Ko M.D. : 1980 Attending Physician: Margarito Mccoy M.D. Primary Care Physician: Aleksey Rodriguez M.D. PROCEDURE OPERATIVE NOTE PREOPERATIVE DIAGNOSIS Obstruction of the lower esophagus secondary to a food bolus. POSTOPERATIVE DIAGNOSIS Food bolus has subsequently passed on its own after the patient underwent general anesthesia. PROCEDURE PERFORMED Esophagogastroduodenoscopy with photos taken. ANESTHESIA General. ESTIMATED BLOOD LOSS None. COMPLICATIONS None. DESCRIPTION OF PROCEDURE The patient was taken to the operating room and left on her hospital bed in a supine position. After appropriate monitoring lines had been placed, general endotracheal anesthesia was then induced per the Anesthesia Department. The flexible endoscope was passed orally per a bite block into the posterior pharynx and with the chin elevated, then down into the esophagus. The scope was then passed under direct vision down through the esophagus with the findings that the food bolus had passed on its own with the induction of general anesthesia. The lower limit of the esophagus was at 38 cm from the incisors. The scope was passed through the stomach and out into the duodenum. The duodenal bulb and proximal second portion of the duodenum were examined and found to be within normal limits. The scope was withdrawn back into the stomach. The entire stomach was visualized with no ulcerations noted. Retroversion of the scope demonstrated the gastroesophageal junction with no evidence of hiatal hernia present. The scope was then withdrawn back up into the esophagus. There was noted to be some mild inflammation and erythema of the lower esophagus where the food bolus had been adherent for passing on its own. The mid and upper portion of the esophagus appeared to be fairly normal. Scope was passed back down into the stomach and air aspirated free. The endoscope was then removed. The patient tolerated the procedure well and left the operating room in satisfactory condition. Unit #: [id number] #: [id number] Patient: ELYSIA HERNANDEZ Dictated by... DezBertin Enriquez/jeny TD: 11/16/2016 00:46 JOB #: [id number] PROCEDURE OPERATIVE NOTE Page 1 of 1 X Dez Ko MD PROCEDURE OPERATIVE NOTE
--- NOTE | ~2016-11-12 | OR ---
Unit #: [id number] #: [id number] Patient: ELYSIA HERNANDEZ [id number] [address] [place], [place] [address] [id number] I MR#: [id number] NAME: ELYSIA HERNANDEZ ROOM: [facility] Date of Procedure: 11/14/2016 Admission Date: 11/12/2016 Surgeon: Vu Ugalde M.D. : 1980 Attending Physician: Margarito Mccoy M.D. Primary Care Physician: Aleksey Rodriguez M.D. OPERATIVE REPORT PRIMARY CARE PHYSICIAN Aleksey Rodriguez M.D. PREOPERATIVE DIAGNOSES The patient has presented with nausea, vomiting, epigastric pain. She was transferred from [facility]. PROCEDURES PERFORMED Upper gastrointestinal endoscopy and foreign body removal. POSTOPERATIVE DIAGNOSES The patient had large amount of compacted meat residue filling up most of the lower half of the esophagus. Part of the meat residue was removed using combination of polypectomy snare and tripods; however, the sheer amount of the meat bolus made it impossible to do this procedure under MAC endoscopically. RECOMMENDATIONS Discussion was held with Dr. Dez Ko, Thoracic surgery for performance of this procedure under general anesthesia in the main OR. This will be done tomorrow morning. In the meantime, the patient will be kept n.p.o. The above findings were also communicated to Dr. Amaya. SEDATION USED MAC. DESCRIPTION OF PROCEDURE Following detailed explanation of the potential risks and complications of an upper endoscopy, namely perforation, bleeding, and complications related to sedation, the patient was brought to GI lab and laid in left lateral decubitus position. Lubricated tip of the Olympus video upper endoscope was passed through the bite block into the proximal esophagus under direct vision. The patient was noted to have severe erosive or ulcerative esophagitis along with meat bolus in the distal esophagus. The meat bolus extent from 30 cm distally. Part of the meat bolus was removed using a combination of polypectomy snare and tripods, but major part of it was left inside the patient because it was composed of compacted chewed up meat tissue. It was felt the risk of perforation was extremely high with perseverance and the patient will undergo repeat examination tomorrow with thoracic surgery under general anesthesia. The scope was then withdrawn. The patient returned to recovery area. She tolerated the procedure without any postprocedure complications. Unit #: [id number] #: [id number] Patient: ELYSIA HERNANDEZ Dictated by... Bertin Lima/jeny TD: 11/14/2016 18:04 JOB #: [id number] CC: Aleksey Rodriguez M.D. OPERATIVE REPORT Page 1 of 1 X Vu Ugalde MD X PROCEDURE OPERATIVE NOTE
--- NOTE | ~2016-11-12 | CO ---
Unit #: [id number] #: [id number] Patient: ELYSIA HERNANDEZ [id number] [address] [address] [id number] I MR#: [id number] NAME: ELYSIA HERNANDEZ ROOM: 241 Age: 36 Sex: F Admission Date: 11/12/2016 : 1980 Attending Physician: Margarito Harden [facility] Primary Care Physician: Aleksey Rodriguez M.D. CONSULTATION REPORT DISCUSSION Ms. Elysia Acharya is a 36-year-old white female, seen in room 241, bed 1 on 11/15/2016. The patient's affect was bright, mood good, pleasant, cooperative. The patient had EGD yesterday. Affect, bright. The patient denied any thoughts of harming self or others. Denied any psychotic symptom. The patient's vital signs; temperature 98.3, pulse 75, respirations 16, blood pressure 158/98, and oxygen saturation 100%. The patient denied any suicidal or homicidal ideation. Denied any psychotic symptom. The patient currently on no psychotropic medication, as all the medication discontinued because of the patient having above-mentioned symptom. The patient reports feeling 100% better. No nausea, vomiting, and will be starting liquids. Also obtained information from sitter as well as from the nursing staff. REVIEW OF SYSTEMS Complete review of system is unremarkable. MENTAL STATUS EXAMINATION General appearance; the patient dressed casually, lying comfortably in bed, made good eye contact. Attention span and concentration, fair. Speech, regular rate and coherent. Oriented in time, place, and person. Mood and affect were brighter. Thought process, coherent. Thought content, the patient denied any suicidal or homicidal ideation. Denied any psychotic symptom. Recent and remote memory, fair. Language, intact. Fund of knowledge, fair to slightly impaired. DIAGNOSES Psychiatric: Bipolar mood disorder, recurrent, severe, mixed, F31.9; opioid use disorder, severe, F11.20. ASSESSMENT/PLAN 1. Supportive psychotherapy and psychoeducation provided to the patient. 2. Educated about benefits and side effects of medication and course and prognosis of illness. 3. Advised to discontinue 72-hour hold and a sitter. Advised the patient to follow up in partial hospitalization program at [facility] and given crisis line #[phone]. Please feel free to call if any questions, telephone #[phone]. Dictated by... Crescencio Zee M.D. [facility]/jeny Unit #: [id number] #: [id number] Patient: ELYSIA HERNANDEZ TD: 11/15/2016 16:58 JOB #: [id number] CONSULTATION REPORT Page 1 of 1 X Crescencio Zee MD X CONSULTATION REPORT
--- NOTE | ~2016-11-12 | CO ---
Unit #: [id number] #: [id number] Patient: ELYSIA HERNANDEZ [id number] [address] [place], [place] [address] [id number] I MR#: [id number] NAME: ELYSIA HERNANDEZ ROOM: 241 Age: 36 Sex: F Admission Date: 11/12/2016 : 1980 Attending Physician: Margarito Mccoy M.D. Primary Care Physician: Aleksey Rodriguez M.D. Consultation Date: 11/14/2016 CONSULTATION REPORT HISTORY OF PRESENT ILLNESS The patient is a 36-year-old white female, who was transferred to [facility] from [facility] on 11/12/2016 with a history of nausea and vomiting and epigastric pain. She underwent flexible esophagoscopy today per Dr. Tram kang with the findings of a food bolus of the distal esophagus. Procedure was performed under MAC, and it was only possible to remove a portion of the food bolus. We were asked to see the patient at this time to consider repeat esophagoscopy and removal of the food bolus under general anesthesia in the operating room. ALLERGIES The patient is allergic to penicillin, latex, and codeine. PAST MEDICAL HISTORY She has a long history of illicit substance abuse of heroin and methamphetamines. Past history is also significant for seizures, cervical dysplasia, mitral valve prolapse, and bipolar disorder. PAST SURGICAL HISTORY Include LEEP procedure and also a hemorrhoidectomy. HOME MEDICATIONS Include Topamax 25 mg b.i.d., Claritin 10 mg p.o. daily, omeprazole 20 mg p.o. b.i.d., clonidine 0.2 mg p.o. daily, Bactrim DS one tablet p.o. b.i.d., and Tylenol p.r.n. for pain. SOCIAL HISTORY The patient denies smoking cigarettes or drinking alcohol. REVIEW OF SYSTEMS Essentially negative except for those things stated in the present illness and past history. PHYSICAL EXAMINATION VITAL SIGNS: The patient's temperature is 97.9, the pulse is 82, respirations 16, and blood pressure is 119/81. HEAD EARS, EYES, NOSE, AND THROAT: Normocephalic without lesions. The pupils are equally round and reactive to light. Extraocular movements are full. NECK: Supple without adenopathy. LUNGS: Fairly clear to auscultation bilaterally. HEART: Regular rhythm without murmurs. ABDOMEN: Soft and relatively nontender at this time with good bowel sounds present. Unit #: [id number] #: [id number] Patient: ELYSIA HERNANDEZ EXTREMITIES: No cyanosis or edema present. NEUROLOGIC: No focal neurologic deficits present. IMPRESSION 1. Esophageal obstruction secondary to a food bolus. 2. Bipolar disorder. 3. History of illicit substance abuse. 4. Past history of seizure activity. PLAN Plan to proceed with esophagogastroduodenoscopy with removal of the esophageal food bolus tomorrow in the OR under general anesthesia. Dictated by... Bertin Hall/jeny TD: 11/15/2016 07:09 JOB #: [id number] CONSULTATION REPORT Page 1 of 1 X Dez Ko MD X CONSULTATION REPORT
--- NOTE | ~2016-11-12 | CO ---
Unit #: [id number] #: [id number] Patient: ELYSIA HERNANDEZ [id number] [address] [address] [id number] I MR#: [id number] NAME: ELYSIA HERNANDEZ ROOM: 241 Age: 36 Sex: F Admission Date: 11/12/2016 : 1980 Attending Physician: Margarito Mccoy M.D. Primary Care Physician: Aleksey Rodriguez M.D. Consultation Date: 11/14/2016 CONSULTATION REPORT REASON FOR CONSULTATION Followup. DISCUSSION Ms. Elysia Hernandez is a 36-year-old white female, seen in room 241, bed 1 on 11/14/2016. The patient reports that she is feeling better as she coughed up big piece of meat, size almost 2 inches in diameter. The patient reports that it was stuck and now she is feeling better. She can breathe and feeling 100% better. The patient was pleasant, cooperative, dressed casually in hospital attire. The patient's vital signs, stable. The patient denied any thoughts of harming self or others. Her vital signs; temperature 98.5, pulse 64, respirations 20, blood pressure 101/75, and oxygen saturation 99%. The patient reports that she was feeling bad, because of that. The patient currently n.p.o. and scheduled for EGD today. The patient has a sitter, on 72-hour hold, transferred from [facility]. REVIEW OF SYSTEMS Complete review of system is unremarkable. MENTAL STATUS EXAMINATION General appearance, the patient dressed casually. Attention span and concentration, fair. Oriented in time, place, and person. Mood and affect, labile. Thought process, coherent. Thought content, the patient denied any thoughts of harming self or others or any psychotic symptom. Recent and remote memory, fair. Language, intact. Fund of knowledge, fair to slightly impaired. DIAGNOSES Psychiatric: Bipolar mood disorder, recurrent, severe, F31.9; opioid use disorder, severe, F11.20. ASSESSMENT/PLAN 1. Supportive psychotherapy and psychoeducation provided to the patient. 2. Educated about benefits and side effects of medication and course and prognosis of illness. 3. Advised to continue with current treatment, continue with 72-hour hold. If the patient continues to do well, plan to take her off from 72-hour hold and a sitter. Please feel free to call if any questions, telephone #[phone]. Dictated by... Crescencio Zee M.D. Unit #: [id number] #: [id number] Patient: ELYSIA HERNANDEZ ROBERTO/modl TD: 11/15/2016 18:54 JOB #: [id number] CONSULTATION REPORT Page 1 of 1 X Crescencio Zee MD X CONSULTATION REPORT
--- NOTE | ~2016-11-12 | CR2 ---
[facility] A Service of [facility] RADIOLOGY TEXT RESULTS PATIENT: ELYSIA HERNANDEZ LOCATION: A 241-01 : [birth year] UNIT #: [id number] AGE: [address]: Zenobia Carpenter MD SEX: F ORDER DR: [id number] [place] [id number] [facility]. [place], [place] [address] [id number] I MR#: [id number] Acc #: [id number] NAME: ELYSIA HERNANDEZ : 1980 SEX: F STUDY DATE/TIME: 11/12/2016 22:26 UNIT: [facility] ROOM: [facility] STUDY DESCRIPTION: CR Abdomen Acute Series Attending Physician: Zenobia Carpenter M.D. Ordering Physician: Julien Leyva M.D. Primary Care Physician: Aleksey Rodriguez M.D. MEDICAL IMAGING REPORT This report is preliminary unless electronic signature is present EXAM Acute abdomen series, 11/12/2016 HISTORY 36-year-old female in the ED complaining of 2-day history of nausea. She also notes chest pain and shortness of air. TECHNIQUE Flat and upright abdomen series with AP chest x-ray. Images are limited as the patient was unable to remain motionless during the examination. FINDINGS Bowel gas pattern is within normal limits. No evidence of bowel obstruction, adynamic ileus or bowel perforation. Tiny calcifications superimposed over the right mid kidney. Presumed vascular calcifications in the pelvis. IUD in the midline pelvis. Chest x-ray shows no active disease. The lungs are clear. Heart size and pulmonary vascularity are normal. IMPRESSION 1. Technically limited study as noted above. 2. Normal bowel gas pattern. 3. Tiny calcification superimposed over right mid kidney. 4. No active disease in the chest. Dictated by... Suraj Trammell M.D. THIS IS AN ELECTRONICALLY VERIFIED REPORT Suraj Trammell M.D. at 11/14/2016 6:02 AM [facility] A Service of [facility] RADIOLOGY TEXT RESULTS PATIENT: ELYSIA HERNANDEZ [id number] [birth year] UNIT #: [id number] AGE: [address]: Zenobia Carpenter MD SEX: F ORDER DR: HANK/macy TD: 11/13/2016 23:43 JOB #: [id number] MEDICAL IMAGING REPORT Page 1 of 1 COPY
--- NOTE | ~2016-11-12 | HP ---
Unit #: [id number] #: [id number] Patient: ELYSIA HERNANDEZ [id number] [address] [address] [id number] I MR#: [id number] NAME: ELYSIA HERNANDEZ ROOM: 324 Age: 36 Sex: F Admission Date: 11/12/2016 : 1980 Attending Physician: Zenobia Carpenter M.D. Primary Care Physician: Aleksey Rodriguez M.D. HISTORY AND PHYSICAL CHIEF COMPLAINT Patient is transferred from [facility][1] for nausea, vomiting, epigastric pain. DISCUSSION This is a 36-year-old female with past medical history of bipolar disorder, history of seizures, long history of illicit substance use - heroin and methamphetamine, history of mitral valve prolapse. She has been in [facility][1], and she was transferred from [facility][1] to emergency room with chief complaint of intractable nausea, vomiting, epigastric pain. She was given medication in the ER, viscous lidocaine, Ativan, Mylanta with no improvement. Eventually been admitted for further workup, evaluation. PAST MEDICAL HISTORY 1. Long history of illicit substance use, including heroin and methamphetamine. 2. History of seizures. 3. History of cervical dysplasia. 4. Mitral valve prolapse. 5. History of mood disorder, substance abuse. 6. Bipolar disorder. PAST SURGICAL HISTORY 1. History of LEEP procedure. 2. Hemorrhoidectomy. ALLERGIES Penicillin, latex, codeine. SOCIAL HISTORY Patient denies smoking. Denies alcohol. Admits to history of illicit substance abuse, including heroin and methamphetamine. FAMILY HISTORY Noncontributory. MEDICATIONS FROM [facility] IS FOLLOWING 1. Topamax 25 mg twice a day. 2. Claritin 10 mg daily. 3. Omeprazole 20 mg b.i.d. 4. Pepcid twice a day 20 mg. 5. Clonidine 0.2 mg daily. 6. Bactrim DS 1 tablet b.i.d. Unit #: [id number] #: [id number] Patient: ELYSIA HERNANDEZ 7. Tylenol 650 q.6 hours p.r.n. 8. Milk of Magnesia p.r.n. 9. Hydroxyzine 50 mg q.6 hours p.r.n. 10. Phenergan every 4 hour p.r.n. REVIEW OF SYSTEMS All review of systems negative except as history of present illness. PHYSICAL EXAMINATION GENERAL: On examination, 36-year-old female lying in the bed comfortably, currently not any distress. On general examination, she is alert, awake, oriented x3, comfortable, not any distress. CURRENT VITALS ARE FOLLOWING: Temp is 98.6, heart rate 95, respirations 18, blood pressure 120/80, oxygen 100% on room air. HEENT: On HEENT examination, pupil equally reactive to light and accommodation. Head is normocephalic, atraumatic. NECK: Supple. No JVD. HEART: S1, S2. Regular rate, rhythm. LUNGS: Clear to auscultation bilaterally. No rhonchi. No wheezing. ABDOMEN: Soft, nontender, nondistended. Bowel sounds positive. EXTREMITIES: Inspection normal. No cyanosis. No clubbing. No edema. NEURO: No focal neurologic deficit. Cranial nerves II-XII intact. Power 5/5 on both sides. PSYCH: Normal mood, affect. DIAGNOSTIC STUDIES HER LABORATORY WORKUP IS FOLLOWING: Sodium 143, potassium 3.6, chloride 108, CO2 25, glucose 113, BUN 10, creatinine 0.8, AST 53, ALT 45, lipase is 23. White count is 12.5, hemoglobin 15, hematocrit 45, platelet 349. IMAGING: X-ray of abdomen series, chest x-ray normal. ASSESSMENT AND PLAN 1. Intractable nausea, vomiting, epigastric pain. Will keep the patient on clear liquid diet. IV Protonix, IV Zofran. Get ultrasound of abdomen. GI to see. 2. Mood disorder/substance abuse. 3. Bipolar disorder. 4. Long history of illicit substance use, heroin and methamphetamine. 5. History of seizures, on Topamax. 6. History of mitral valve prolapse. 7. DVT prophylaxis. Will place the patient on SCDs. Dictated by Bertin Negrete/harper TD: 11/13/2016 09:26 JOB #: [id number] Unit #: [id number] #: [id number] Patient: ELYSIA HERNANDEZ HISTORY AND PHYSICAL Page 1 of 1 X X HISTORY AND PHYSICAL
--- NOTE | ~2016-11-12 | CO ---
Unit #: [id number] #: [id number] Patient: ELYSIA HERNANDEZ [id number] [facility] [address] [facility]. [place], [place] [address] [id number] I MR#: [id number] NAME: ELYSIA HERNANDEZ ROOM: 241 Age: 36 Sex: F Admission Date: 11/12/2016 : 1980 Attending Physician: Margarito Harden [facility] Primary Care Physician: Aleksey Rodriguez M.D. CONSULTATION REPORT REASON FOR CONSULTATION Confusion, paranoia, mood lability, suicidal ideation, substance abuse. HISTORY OF PRESENT ILLNESS Elysia Acharya was initially admitted at [facility] and was treated there, subsequently transferred to [facility] due to nausea, vomiting, epigastric pain. The patient is in room 241, bed 1. The patient dressed in hospital attire, curled up in sheet, making poor eye contact. The patient has a sitter. The patient is on 72-hour hold. The patient has a history of illicit drug abuse, drug of choice heroin and amphetamine. Mood lability. The patient did not show any agitation and reported that she is unable to take anything by mouth. PAST PSYCHIATRIC HISTORY Remarkable for history of previous admission on 11/10/2016 at [facility]. The patient has a history of alcohol abuse, cocaine abuse, cannabis abuse, acid, opioid, methamphetamine, spice. History of multiple inpatient psychiatric treatment for chemical dependency hospitalized at [facility] in [place], [place], [facility], [facility]. The patient currently not seeing any psychiatrist. MEDICAL HISTORY Remarkable for history of carpal tunnel syndrome. MEDICATION HISTORY None. ALLERGIES Penicillin, codeine, latex, piperacillin. FAMILY HISTORY AND SOCIAL HISTORY The patient has a poor support system. No history of abuse, but history of substance abuse as mentioned above. REVIEW OF SYSTEMS Complete review of system is unremarkable except as mentioned above. MENTAL STATUS EXAMINATION The patient's vital signs; temperature 100.8, pulse 88, respirations 20, blood pressure 115/69, and oxygen saturation 93%. General appearance; the patient dressed casually in hospital attire. Attention span and concentration, poor. Speech, slow in volume. Oriented in place and person. Mood and affect, sad and dysphoric. Thought process, Unit #: [id number] #: [id number] Patient: ELYSIA HERNANDEZ circumstantial. Thought content, the patient denied any thoughts of harming others, but passive SI, guarded, paranoid. Recent and remote memory, poor. Language, intact. Fund of knowledge, fair. Insight and judgment, fair to poor. DIAGNOSES Psychiatric: Bipolar mood disorder, recurrent, severe, depressed, F31.9; opioid abuse, moderate, F11.20; amphetamine use disorder, moderate, F15.20. Secondary diagnosis: Deferred. Medical diagnosis: Please refer to H and P. ASSESSMENT/PLAN 1. Supportive psychotherapy and psychoeducation provided to the patient. 2. Educated about benefits and side effects of medication and course and prognosis of illness. 3. Advised to continue with current treatment. Continue with 72-hour hold and one-to-one sitter for the patient's close monitoring for safety. We will continue to follow. If needed, consider further adjustment of medication. Agreed with stopping her medication as the patient is too drowsy, keeping medication minimum as possible and continue with Vistaril 50 mg q.6 hours p.r.n. Dictated by... Crescencio Zee M.D. ROBERTO/jeny TD: 11/13/2016 17:03 JOB #: [id number] CONSULTATION REPORT Page 1 of 1 X Crescencio Zee MD X CONSULTATION REPORT
--- NOTE | ~2016-11-12 | CO ---
Unit #: [id number] #: [id number] Patient: ELYSIA HERNANDEZ [id number] [address] [address] [id number] MR#: [id number] NAME: ELYSIA HERNANDEZ ROOM: 241 Age: 36 Sex: F Admission Date: 11/12/2016 : 1980 Attending Physician: Margarito Mccoy Primary Care Physician: Aleksey Rodriguez M.D. CONSULTATION REPORT ADDITIONAL ATTENDING PHYSICIAN Allan Gilbert M.D. REASON FOR CONSULTATION Nausea, vomiting, and upper abdominal epigastric pain. HISTORY OF PRESENT ILLNESS Ms. Acharya is a 36-year-old white female, who presented with a history of nausea and vomiting for the past 2 to 3 days. This has been intractable and unrelenting. She also had watery diarrhea, which is somewhat better. There is no history of any significant recent weight loss. PAST MEDICAL HISTORY Significant for history of seizures and psychiatric history of polysubstance abuse. The patient has had previous history of surgery that included hemorrhoid surgery. MEDICATIONS Her medications at home were reviewed from the medical reconciliation sheet include Phenergan, Motrin, Zofran, Claritin, pantoprazole, famotidine, clonidine, topiramate, Bactrim, Tylenol, milk of magnesia, hydroxyzine. It is not clear if the patient is compliant with any of these medications. ALLERGIES She is allergic to penicillin, codeine, and latex. SOCIAL HISTORY The patient does not smoke cigarettes or drink alcohol, but there is a history of polysubstance abuse including heroin and methamphetamine. FAMILY HISTORY None of colon, pancreatic cancer, or liver disease. REVIEW OF SYSTEMS Detailed review of organ system does not reveal any recent fever or recent weight loss. No history of fever, chills, or rigors. There is a history of seizure. No history of headache. No history of skin rash, aphthous ulcer in the mouth, or reactive arthritis. No history of focal seizures or extremity weakness. Rest of the review of organ systems is unremarkable. PHYSICAL EXAMINATION GENERAL: She is comfortable and asleep. She has no pallor, icterus, Unit #: [id number] #: [id number] Patient: ELYSIA HERNANDEZ lymphadenopathy, or peripheral edema. VITAL SIGNS: Temperature is 98.6, pulse 95, respiratory rate is 18, blood pressure is 121/81. Oxygen saturation 100% on room air. CARDIOVASCULAR: Normal heart sounds. No murmurs. LUNGS: Auscultation over the lungs reveals normal breath sounds with good air entry. ABDOMEN: Soft and nontender. Liver and spleen are not palpable. Bowel sounds normal. DIAGNOSTIC STUDIES LABORATORY RESULTS: Lab evaluation is primarily indicative of mild transaminase elevations. CLINICAL IMPRESSION The patient is with nausea and vomiting, history of drug use in the recent past, and also has upper abdominal pain. A diagnostic endoscopy is warranted to be scheduled for tomorrow. The patient will be on clear liquid diet in the meantime. We will also obtain hepatitis profile based upon her mild elevation of transaminases and history of drug use. Thank you very much for asking me to see this pleasant woman. I appreciate the consult. Dictated by... Bertin Lima/jeny TD: 11/13/2016 07:47 JOB #: [id number] CC: Bertin Nice M.D. CONSULTATION REPORT Page 1 of 1 X Vu Ugalde MD X CONSULTATION REPORT
[2016-11-12 21:14] LABS: BASOPHIL% 0.1 % (0-2.5); HEMATOCRIT 45.6 % (35.0-45.0); HEMOGLOBIN 15.2 gm/dL (12.0-16.0); LYMPHOCYTE# 1.7 X10e3 (1.0-3.5); LYMPHOCYTE% 13.6 % (17.0-45.0); MEAN CELL VOLUME 89.3 FL (83-96); MEAN CORPUSCULAR HEMOGLOBIN 29.7 PG (28-34); MEAN CORPUSCULAR HGB CONC 33.3 g/dL (30-36); MEAN PLATELET VOLUME 7.7 FL (6.5-11.5); MONOCYTE# 0.4 X10e3 (0-1.0); MONOCYTE% 3.3 % (3.0-12.0); NEUTROPHIL# 10.3 X10e3 (1.5-7.1); PLATELET COUNT 349 X10e3 (140-420); RED CELL DISTRIBUTION WIDTH 13.5 % (11.0-15.5); WHITE BLOOD COUNT 12.5 X10e3 (4.0-10.5)
[2016-11-12 21:15] LABS: DIFF IND NO
[2016-11-12 22:00] LABS: ALBUMIN SERUM 4.3 g/dL (3.5-5.0); BILIRUBIN, DIRECT 0.2 mg/dL (0.0-0.2); BILIRUBIN,INDIRECT 0.7 mg/dL (0.0-0.9); BILIRUBIN,TOTAL 0.9 mg/dL (0.2-2.0); BUN/CREATININE RATIO 12.5; CALCIUM SERUM 9.8 mg/dL (8.4-10.2); CREATININE SERUM 0.8 mg/dL (0.6-1.4); GLOM FILT RATE Estimated 94.9 mL/min (>60); POTASSIUM 3.6 mmol/L (3.5-5.1); PROTEIN TOTAL SERUM 7.5 g/dL (6.0-8.3)
[2016-11-12 23:01] LABS: URINE SOURCE CLEAN CATCH
[2016-11-12] MEDS ORDERED: TOPIRAMATE25 MG PO (23:04)
[2016-11-12] MEDS ORDERED: CLARITIN10 M2 PO (23:04)
[2016-11-12] MEDS ORDERED: ACID REDUCER20 MG PO (23:05)
[2016-11-12] MEDS ORDERED: PANTOPRAZOLE SO40 MG PO (23:05)
[2016-11-12 23:06] LABS: URINE APPEARANCE CLEAR; URINE BILIRUBIN NEG (NEG); URINE BLOOD 2+ (NEG); URINE COLOR YELLOW; URINE GLUCOSE NEG (NEG); URINE KETONE 3+ (NEG); URINE LEUKOCYTE ESTERASE TRACE (NEG); URINE NITRATE NEG (NEG); URINE PROTEIN TRACE (NEG); URINE SPECIFIC GRAVITY 1.022 (1.003-1.035)
[2016-11-12] MEDS ORDERED: CATAPRES0.1 MG PO (23:06)
[2016-11-12 23:07] LABS: URBCS1 AUWI 25-50 /[HPF] (0-2); URINE BACTERIA AUWI 1+ (NEGATIVE); URINE SQUAMOUS EPITHELIAL CELL FEW /[HPF]
[2016-11-12] MEDS ORDERED: BACTRIM 400-801 EACH (23:07)
[2016-11-12] MEDS ORDERED: MAALOX SUSPENS355 ML PO (23:09)
[2016-11-12] MEDS ORDERED: TYL325 PO (23:09)
[2016-11-12] MEDS ORDERED: MILK OF MAGNESIA PO (23:10)
[2016-11-12] MEDS ORDERED: HYDROXYZINE HCL50 MG PO (23:10)
[2016-11-12] MEDS ORDERED: PHENERGAN25 MG/1 M1 (23:11)
[2016-11-12] MEDS ORDERED: MOTRIN600 MG PO (23:12)
[2016-11-12] MEDS ORDERED: ONDANSETRON ODT4 MG PO (23:13)
[2016-11-12] MEDS ORDERED: PHENERGAN25 M1 PO (23:14)
[2016-11-13 09:25] LABS: BASOPHIL% 0.3 % (0-2.5); EOSINOPHIL% 0.1 % (0.0-7.0); HEMATOCRIT 39.1 % (35.0-45.0); LYMPHOCYTE# 2.5 X10e3 (1.0-3.5); LYMPHOCYTE% 19.2 % (17.0-45.0); MEAN CORPUSCULAR HGB CONC 33.3 g/dL (30-36); MEAN PLATELET VOLUME 8.1 FL (6.5-11.5); MONOCYTE% 7.4 % (3.0-12.0); NEUTROPHIL# 9.5 X10e3 (1.5-7.1); PLATELET COUNT 299 X10e3 (140-420); RED BLOOD COUNT 4.34 X10e (3.90-5.30); RED CELL DISTRIBUTION WIDTH 13.3 % (11.0-15.5)
[2016-11-13 09:42] LABS: DIFF IND NO
[2016-11-13 10:11] LABS: BUN/CREATININE RATIO 12.85; CALCIUM SERUM 8.8 mg/dL (8.4-10.2); CREATININE SERUM 0.7 mg/dL (0.6-1.4); GLOM FILT RATE Estimated 111.5 mL/min (>60); POTASSIUM 3.3 mmol/L (3.5-5.1)
[2016-11-14 08:59] LABS: HEMATOCRIT 37.6 % (35.0-45.0); HEMOGLOBIN 12.7 gm/dL (12.0-16.0); MEAN CORPUSCULAR HEMOGLOBIN 30.1 PG (28-34); MEAN CORPUSCULAR HGB CONC 33.9 g/dL (30-36); MEAN PLATELET VOLUME 8.1 FL (6.5-11.5); RED BLOOD COUNT 4.22 X10e (3.90-5.30); RED CELL DISTRIBUTION WIDTH 13.3 % (11.0-15.5); WHITE BLOOD COUNT 9.4 X10e3 (4.0-10.5)
[2016-11-14 10:35] LABS: ALBUMIN SERUM 3.4 g/dL (3.5-5.0); BILIRUBIN,TOTAL 0.7 mg/dL (0.2-2.0); CALCIUM SERUM 8.9 mg/dL (8.4-10.2); CREATININE SERUM 0.6 mg/dL (0.6-1.4); GLOM FILT RATE Estimated 117.3 mL/min (>60); POTASSIUM 3.4 mmol/L (3.5-5.1); PROTEIN TOTAL SERUM 6.1 g/dL (6.0-8.3)
[2016-11-15 06:30] LABS: HEMATOCRIT 37.1 % (35.0-45.0); HEMOGLOBIN 12.7 gm/dL (12.0-16.0); MEAN CELL VOLUME 88.8 FL (83-96); MEAN CORPUSCULAR HEMOGLOBIN 30.4 PG (28-34); MEAN CORPUSCULAR HGB CONC 34.2 g/dL (30-36); MEAN PLATELET VOLUME 7.8 FL (6.5-11.5); RED BLOOD COUNT 4.18 X10e (3.90-5.30)
[2016-11-15 06:41] LABS: INR 1.1; PARTIAL THROMBOPLASTIN TIME 28.4 SECONDS (23.5-31.3); PROTHROMBIN TIME (PATIENT) 11.9 SECONDS (10.0-11.7)
[2016-11-15 07:09] LABS: CALCIUM SERUM 8.8 mg/dL (8.4-10.2); CREATININE SERUM 0.7 mg/dL (0.6-1.4); GLOM FILT RATE Estimated 111.5 mL/min (>60); POTASSIUM 3.3 mmol/L (3.5-5.1)
[2016-11-15] MEDS ORDERED: KLOR-CON PO (18:38)
[2016-11-16 18:45] LABS: HA AB IGM (HEPPAN) Nonreactive (()); HB CORE AB IGM (HEPPAN) Nonreactive (Nonreactive); HB S AG (HEPPAN) Nonreactive (Nonreactive); HEP C AB (HEPPAN) Reactive (Nonreactive)
== END 2016-11-15 20:14 | disposition home or self-care (01) | DRG 394 ==
LOC: CED 19:54 → CEDOF 23:23 → CED 23:23 → C2A 23:30 → CEDOF 23:30 → C3A PCU 11-13 08:21 → CEDOF 11-13 08:21 → C2A 11-13 12:44 → C3A PCU 11-13 12:44 → C2A 11-14 09:52
PROVIDERS: Emergency Medicine; Family Medicine; Internal Medicine Gastroenterology; Surgery
PROC: 0DC38ZZ Extirpation of Matter from Lower Esophagus, Via Natural or Artificial Opening Endoscopic (ICD-10-PCS; principal; 2016-11-14 13:48)
PROC: 0DJ08ZZ Inspection of Upper Intestinal Tract, Via Natural or Artificial Opening Endoscopic (ICD-10-PCS; 2016-11-15)
DX: T18.128A Food in esophagus causing other injury, initial encounter (principal); F31.4 Bipolar disorder, current episode depressed, severe, without psychotic features; K22.10 Ulcer of esophagus without bleeding; F15.20 Other stimulant dependence, uncomplicated; F11.20 Opioid dependence, uncomplicated; N39.0 Urinary tract infection, site not specified; X58.XXXA Exposure to other specified factors, initial encounter; G40.909 Epilepsy, unspecified, not intractable, without status epilepticus; Z88.0 Allergy status to penicillin; Z91.040 Latex allergy status; Z88.5 Allergy status to narcotic agent; R94.5 Abnormal results of liver function studies
CPT/HCPCS: 36415; 74022; 80048; 80053; 80074; 80076; 81003; 83690; 84703; 85025; 85027; 85610; 85730; 87040; 87522; 96361; 96374; 96375; 99285; C9113; J0330; J0696; J1610; J2060; J2250; J2270; J2405; J2550; J2765; J3010